=== PATIENT | female | born 1980 | race Caucasian/White ===

== ENCOUNTER 2022-10-08 08:00 | Inpatient (IN) | payer OTHER ==
[2022-10-08 09:34] VITALS: BMI 31.8
[2022-10-08] MEDS ORDERED: PROMETHAZINE HCL 25 MG/1 ML VIAL IVPUSH ONE (10:30)
[2022-10-08] MEDS ORDERED: BUTORPHANOL TARTRATE 1 MG/ML VIAL IVPB ONE (10:30)
[2022-10-08] MEDS ORDERED: SODIUM PHOSPHATE/NA BIPHOS 133 ML ENEMA RC ONE (10:32)
[2022-10-08] MEDS ORDERED: DINOPROSTONE 10 MG VAGINAL SUPPOSITORY VG ONE (10:33)
[2022-10-09] MEDS ORDERED: DINOPROSTONE 10 MG VAGINAL SUPPOSITORY VG ONE (02:00)
[2022-10-09] MEDS ORDERED: PROMETHAZINE HCL 25 MG/1 ML VIAL ONE (03:56)
[2022-10-09] MEDS ORDERED: BUTORPHANOL TARTRATE 2 MG/ML VIAL ONE (03:56)
[2022-10-09] MEDS: DEXTROSE 5%-LACTATED RINGERS 1,000 ML IV SCH ×2 (04:00→08:00)
[2022-10-09] MEDS ORDERED: OXYTOCIN 30 UNITS in 0.9% NS 30 UNIT/500 ML INFUS.BAG IVPB ONE (07:45)
[2022-10-09] MEDS ORDERED: OXYTOCIN 30 UNITS in 0.9% NS 30 UNIT/500 ML INFUS.BAG IVPB SCH (07:50)
[2022-10-09] MEDS ORDERED: FENTANYL/BUPIVACAINE/NS/PF - PCEA - 50 ML DISP.SYRIN EP ONE (09:10)
[2022-10-09] MEDS ORDERED: NALOXONE HCL 0.4 MG/ML VIAL IVPUSH PRN (09:15)
[2022-10-09] MEDS ORDERED: FENTANYL/BUPIVACAINE/NS/PF - PCEA - 50 ML DISP.SYRIN EP SCH (09:15)
[2022-10-09] MEDS ORDERED: BUPIVACAINE HCL/PF 0.25% (2.5MG/ML) 10 ML VIAL ONE (09:16)
[2022-10-09] MEDS ORDERED: LIDOCAINE HCL 1% PRESERVATIVE FREE - 30ML VIAL ONE (13:50)
[2022-10-09] MEDS ORDERED: OXYTOCIN 20 UNITS in 0.9% NS 20 UNIT/1,000 ML INFUS.BAG IV ONE (13:51)
[2022-10-09] MEDS ORDERED: IBUPROFEN 600 MG TABLET (FP) PO ONE (15:37)
[2022-10-09] MEDS: IBUPROFEN 600 MG TABLET (FP) PO PRN ×2 (15:50→22:42)
[2022-10-09] MEDS ORDERED: METHYLERGONOVINE MALEATE 0.2 MG/1 ML AMP IM PRN (16:01)
[2022-10-09] MEDS ORDERED: WITCH HAZEL 50% (TUCKS) 40 PAD/JAR PAD TP PRN (16:01)
[2022-10-09] MEDS ORDERED: BENZOCAINE 28 GM HEMORRHOIDAL OINTMENT TP PRN (16:01)
[2022-10-09] MEDS ORDERED: BENZOCAINE 20% 57 GM BOTTLE TP PRN (16:01)
[2022-10-09] MEDS ORDERED: ACETAMINOPHEN 325 MG TABLET (FP) PO PRN (16:01)
[2022-10-09] MEDS ORDERED: BISACODYL 10 MG SUPP.RECT RC PRN (16:01)
[2022-10-09] MEDS ORDERED: oxyCODONE HCL 5 MG TABLET PO PRN (16:01)
[2022-10-09] MEDS ORDERED: OXYTOCIN 20 UNITS in 0.9% NS 20 UNIT/1,000 ML INFUS.BAG IV SCH (16:15)
[2022-10-09] MEDS: FERROUS SO4 325 MG TABLET (FP) PO SCH (18:02)
[2022-10-10] MEDS: IBUPROFEN 600 MG TABLET (FP) PO PRN ×3 (06:09→21:26)
[2022-10-10] MEDS: FERROUS SO4 325 MG TABLET (FP) PO SCH ×2 (08:24→18:10)
[2022-10-10 08:43] LABS: BASO % 0.2 % (0-2.0); EOS % 0.7 % (0-4.5); HEMATOCRIT 35.6 % (32.4-45.2); HEMOGLOBIN 11.9 GM/dL (10.7-15.3); LYMPH % 20.2 % (8-40); MCH 32.6 pg (25.7-33.7); MCHC 33.5 g/dl (32.0-36.0); MEAN CELL VOLUME 97.5 fl (80-96); MEAN PLT VOLUME 9.7 fl (7.5-11.1); MONO % 7.5 % (3.8-10.2); NEUT % 71.4 % (42.8-82.8); PLATELET COUNT 205 10^3/uL (134-434); RBC 3.65 M/mm3 (3.60-5.2); RDW 12.7 % (11.6-15.6); WHITE BLOOD COUNT 13.2 K/mm3 (4.0-10.0)
[2022-10-10] MEDS: PRENATAL VITAMINS W/ FOLIC ACID TABLET (FP) PO SCH (09:46)
[2022-10-10] MEDS ORDERED: SENNOSIDES/DOCUSATE COMBO (SENNA PLUS) TABLET (UD) PO PRN (22:00)
[2022-10-11] MEDS: IBUPROFEN 600 MG TABLET (FP) PO PRN ×2 (05:04→09:00)
[2022-10-11] MEDS: PRENATAL VITAMINS W/ FOLIC ACID TABLET (FP) PO SCH (08:59)
[2022-10-11] MEDS: FERROUS SO4 325 MG TABLET (FP) PO SCH (08:59)
[2022-10-11 12:10] VITALS: BP 110/69; PULSE 89; RESP 16; TEMP 98.3
== END 2022-10-11 13:15 | disposition home or self-care (01) | DRG 560 ==
LOC: JLDR 08:00 → J3W 10-09 16:45
PROVIDERS: ADMIT Obstetrics & Gynecology; ATTEND Obstetrics & Gynecology
PROC: 3E0P7VZ Introduction of Hormone into Female Reproductive, Via Natural or Artificial Opening (ICD-10-PCS; 2022-10-08)
PROC: 10E0XZZ Delivery of Products of Conception, External Approach (ICD-10-PCS; principal; 2022-10-09)
PROC: 0W8NXZZ Division of Female Perineum, External Approach (ICD-10-PCS; 2022-10-09)
PROC: 0HQ9XZZ Repair Perineum Skin, External Approach (ICD-10-PCS; 2022-10-09)
DX: O70.0 First degree perineal laceration during delivery (principal); Z3A.41 41 weeks gestation of pregnancy; Z37.0 Single live birth
CPT/HCPCS: 36415; 59409; 80053; 85025; 85610; 86780; 86850; 86900; 86901; C9803-CS; U0003; U0005